=== PATIENT | female | born 2000 ===

== ENCOUNTER 2024-05-01 07:07 | Emergency (ER) | payer OTHER, SELFPAY ==
--- NOTE | ~2024-05-01 | XR_ITS ---
EXAMINATION: XR CHEST CLINICAL INFORMATION: Chest pain after vomiting COMPARISON: None available. TECHNIQUE: Frontal view of the chest was obtained. FINDINGS: No focal consolidation. No pneumothorax. Trachea is midline. Cardiomediastinal silhouette is not enlarged. No large pleural effusion. Osseous structures are intact. Soft tissues are unremarkable. XR/XR chest 1V IMPRESSION: No acute cardiopulmonary process. Electronically signed by: Robert Pruett MD 05/01/2024 08:54 AM EDT
--- NOTE | ~2024-05-01 | US_ITS ---
EXAMINATION: US PELVIC COMPLETE WITH TV CLINICAL INFORMATION: Left-sided Pelvic pain COMPARISON: None available. TECHNIQUE: Real-time transabdominal and transvaginal ultrasound scanning. FINDINGS: Transabdominal and transvaginal ultrasound examination of the pelvis were performed. Uterus: Anteverted; measuring 7.5 cm in length, 4.1 cm in AP diameter and 5.7 cm in width. Uterine cervix measures 2.5 cm in length. Echotexture: normal sonographic appearance. A thick walled hypoechoic lesion with significant internal echoes is seen in left lateral uterine body measuring 3.2 cm in AP diameter, 3.8 cm in width, 3.6 cm in vertical height. Endometrial Thickness: 0.48 cm. Right ovary: 5.0 x 2.7 x 2.2 cm (SAG x AP x TRV), calculated volume of 16.1 mL, with normal echotexture. Color Doppler imaging and Doppler spectral analysis show normal directional arterial and venous Doppler flow spectrum. Anechoic simple cyst measures 3.0 x 2.1 x 2.2 cm (SAG x AP x TRV). Left ovary: 3.5 x 2.1 x 2.2 cm (SAG x AP x TRV), calculated volume of 8.3 mL, with normal echotexture. Color Doppler imaging and Doppler spectral analysis show normal directional arterial and venous Doppler flow spectrum. Small collection of posterior pelvic cul-de-sac free fluid is present. Limited view of the urinary bladder shows no abnormality. US/US pelvic ovarian doppler IMPRESSION: 1. A thick-walled hemorrhagic cystic lesion is seen in left lateral uterine body, could represent a hemorrhagic leiomyoma. Follow-up with pre and postcontrast MRI of pelvis is recommended. 2. A 3.0 cm simple cyst is seen in the right ovary. 3. Findings are overwhelmingly likely to represent a normal ovarian follicle. No followup imaging recommended. 4. Small collection of posterior pelvic cul-de-sac free fluid is present. Electronically signed by: Socorro Disla MD 05/01/2024 10:35 AM EDT
--- NOTE | ~2024-05-01 | US_ITS ---
EXAMINATION: US PELVIC COMPLETE WITH TV CLINICAL INFORMATION: Left-sided Pelvic pain COMPARISON: None available. TECHNIQUE: Real-time transabdominal and transvaginal ultrasound scanning. FINDINGS: Transabdominal and transvaginal ultrasound examination of the pelvis were performed. Uterus: Anteverted; measuring 7.5 cm in length, 4.1 cm in AP diameter and 5.7 cm in width. Uterine cervix measures 2.5 cm in length. Echotexture: normal sonographic appearance. A thick walled hypoechoic lesion with significant internal echoes is seen in left lateral uterine body measuring 3.2 cm in AP diameter, 3.8 cm in width, 3.6 cm in vertical height. Endometrial Thickness: 0.48 cm. Right ovary: 5.0 x 2.7 x 2.2 cm (SAG x AP x TRV), calculated volume of 16.1 mL, with normal echotexture. Color Doppler imaging and Doppler spectral analysis show normal directional arterial and venous Doppler flow spectrum. Anechoic simple cyst measures 3.0 x 2.1 x 2.2 cm (SAG x AP x TRV). Left ovary: 3.5 x 2.1 x 2.2 cm (SAG x AP x TRV), calculated volume of 8.3 mL, with normal echotexture. Color Doppler imaging and Doppler spectral analysis show normal directional arterial and venous Doppler flow spectrum. Small collection of posterior pelvic cul-de-sac free fluid is present. Limited view of the urinary bladder shows no abnormality. US/US pelvic and transvaginal IMPRESSION: 1. A thick-walled hemorrhagic cystic lesion is seen in left lateral uterine body, could represent a hemorrhagic leiomyoma. Follow-up with pre and postcontrast MRI of pelvis is recommended. 2. A 3.0 cm simple cyst is seen in the right ovary. 3. Findings are overwhelmingly likely to represent a normal ovarian follicle. No followup imaging recommended. 4. Small collection of posterior pelvic cul-de-sac free fluid is present. Electronically signed by: Socorro Disla MD 05/01/2024 10:35 AM EDT
[2024-05-01 07:09] VITALS: BP 129/87; PULSE 71; RESP 20; TEMP 37.1; O2SAT 99; BMI 37.3
[2024-05-01] MEDS: ondansetron HCL 4 MG/2 ML VIAL IVPUSH (07:34)
--- NOTE | 2024-05-01 07:34 | ED.ABDPAIN ---
HPI - Abdominal Pain General Chief Complaint: Abdominal Pain Stated Complaint: Abd pain Time Seen by Provider: 05/01/24 07:13 Source: patient Mode of arrival: ambulatory Limitations: no limitations History of Present Illness ED Provider: DEVAUGHN NAVA narrative: 23 yo female with PMH of endometriosis and fibroids on OCPs states she was diagnosed by MRI via [facility] does not have OBGYN here notes she has severe pain around the time of her menses. She presents today with severe onset of lower abdominal pain , vomiting, cramping and n/v starting around 5am. She usually notes she takes naproxen but doesn't have any. No fevers. She tried tylenol without relief this AM. She has TENS type unit she also uses. She was vomiting so much her chest started to hurt. She has had this before. She denies every having confirmatory laparascopy or any other investigations other than MRI MD elicited complaint: abdominal pain Pertinent past history: other (endometriosis) Onset (ago): hour(s) (couple) Pain Consistency: colicky Location: LLQ Severity: severe Quality: stabbing Radiation: suprapubic Migration to: no migration Exacerbating factors: movement Relieving factors: nothing Context: history of similar episodes Associated symptoms: nausea and vomiting Treatments prior to arrival: other (tylenol) Related Data Previous Rx's ?Medication ?Instructions ?Recorded cyclobenzaprine 10 mg tablet 10 mg PO TID PRN muscle spasm #20 05/01/24 tabs ibuprofen 600 mg tablet 600 mg PO Q6H PRN pain #30 tabs 05/01/24 ondansetron 4 mg disintegrating 4 mg PO Q8H PRN nausea and 05/01/24 tablet vomiting #20 tabs Allergies Allergy/AdvReac Type Severity Reaction Status Date / Time No Known Allergies Allergy Verified 05/01/24 07:12 Review of Systems Review of Systems Constitutional : No Weight loss, No Fever, No Chills ENT/Mouth : No sore throat, No Rhinorrhea Eyes: No Swelling, No Redness Cardiovascular : pos Chest Pain, No SOB, NoEdema Respiratory : No Cough, No Sputum, No Wheezing Gastrointestinal : Positive Nausea, Positive Vomiting, no Diarrhea, positive abdominal Pain, No Hematochezia, No Melena Genitourinary : No Dysuria, No Urinary Frequency, No Hematuria, No Urgency Musculoskeletal : No joint pain, No Myalgias, No Joint Swelling Skin : No Skin Lesions, No rash Neuro : No Weakness, No Numbness, No Dizziness, No Headache All other systems reviewed and are negative. [facility] Past Medical History Attestation statement: The following information was validated with the patient. Source: old records reviewed Medical History Endometriosis Uterine fibroid Social History Social History (Updated 05/01/24 @ 07:57 by Ashley Trimble DO) Patient Tobacco Use Status: Never used Tobacco Use of substances other than those prescribed or required for medical reasons: No Advance Directives: No Advance Directives Information Provided: Yes Do you have a plan to hurt others: No Plan Patient : No Physical Exam ED Vital Signs: Vital Signs - 24 hr 05/01/24 07:09 Temperature 98.7 F Pulse Rate 71 Respiratory Rate 20 Blood Pressure 129/87 Pulse Oximetry 99 Oxygen Delivery Method Room Air BMI result Body Mass Index 37.3 Appearance: Alert. Oriented X3. Moderate acute distress - appears in pain, vomiting, uncomfortable. Eyes: Pupils equal, round and reactive to light. ENT: Pharynx normal. Neck: Normal inspection. Neck supple. CVS: Normal heart rate and rhythm. Pulses normal. Respiratory: No respiratory distress. Breath sounds normal. Abdomen: Soft and moderate LLQ pain with rebound and voluntary guarding Skin: Skin warm and dry. Normal skin color. Extremities: No lower extremity edema. Neuro: Oriented X 3. No motor deficit. No sensory deficit. Medical Decision Making Medical Decision Making [facility] Narrative: 23 yo female with PMH of endometriosis, uterine fibroids here with c/o LLQ pain severe and nausea vomiting causing chest pain at this time will need basic labs, US to evaluate for cyst/torsion, IV morphine for pain. Denies hx of renal colic Differential Diagnosis Differential Diagnoses: The differential diagnosis associated with the presentation includes endometriosis, ovarian cyst, torsion Admission/Observation Consideration of admission/observation: Escalation of care including admission/observation considered pain resolved feels so much better Consult Healthcare Provider Management of the patient was discussed with: Bookkeepers Supervisor (outpatient management and follow up no other acute needs - [facility] via text) Lab Data [facility] Lab Attestation statement: I reviewed the patient's lab results. 05/01/24 07:28 05/01/24 07:28 Labs: Lab Results 05/01/24 05/01/24 Range/Units 07:28 10:15 WBC 6.0 (4.8-10.8) X10*3/uL RBC 3.98 L (4.20-5.50) X10*6/uL Hgb 12.3 (12.0-16.0) g/dl Hct 36.7 L (37.0-47.0) % MCV 92.2 (80.0-98.0) fL MCH 30.9 (27.0-33.0) pg MCHC 33.5 (31.0-35.0) g/dl RDW 12.5 (11.0-16.0) % Plt Count 316 (160-400) X10*3/uL MPV 8.7 L (9.4-12.3) fL Immature Gran % (Auto) 0.2 (0.0-0.4) % Neut % (Auto) 55.5 (45-73) % Lymph % (Auto) 31.8 (20-40) % [place] % (Auto) 10.0 (2-11) % Eos % (Auto) 1.5 (0-4) % Baso % (Auto) 1.0 (0-2) % Lymph # (Auto) 1.9 (1.2-4.9) X10*3/uL [place] # (Auto) 0.6 (0.1-1.2) X10*3/uL Eos # (Auto) 0.1 (0.0-0.4) X10*3/uL Baso # (Auto) 0.1 (0.0-0.2) X10*3/uL Abs Immat Gran (auto) 0.01 (0.00-0.03) X10*3/uL Absolute Neuts (auto) 3.4 (2.0-8.3) x10*3/uL Absolute Nucleated RBC 0.000 (0.0-0.012) X10*3/uL Nucleated RBC % (auto) 0.0 (0.0-0.2) /100WBC Sodium 139 (135-145) mmol/L Potassium 3.7 (3.3-5.1) mmol/L Chloride 106 (96-108) mmol/L Carbon Dioxide 24 (22-29) mmol/L Anion Gap 13 (12-20) BUN 13 (9-16) mg/dL Creatinine 0.94 (0.5-1.4) mg/dL Estim Creat Clear Calc 105.3 Estimated GFR > 60 Random Glucose 105 (60-115) mg/dL Calcium 9.5 (8.4-10.2) mg/dL Magnesium 1.8 (1.6-2.6) mg/dL Total Bilirubin 0.2 (0.0-1.0) mg/dL Direct Bilirubin < 0.2 (0.0-0.5) mg/dL AST 14 (5-31) U/L ALT 13 (0-31) U/L Alkaline Phosphatase 49 (39-117) U/L Total Protein 6.8 (6.5-8.0) g/dL Albumin 3.9 (3.5-5.0) g/dL Lipase 23 (8-78) U/L Beta HCG, Quant < 2 mIU/mL Urine Color Yellow Urine Appearance Clear Urine pH 7.5 (5.0-9.0) Ur Specific [place] 1.015 (1.005-1.025) Urine Protein Negative (Neg-Trace) mg/dL Urine Glucose (UA) Negative (Negative) mg/dL Urine Ketones Negative (Negative) mg/dL Urine Blood Negative (Negative) Urine Nitrite Negative (Negative) Ur Leukocyte Esterase Negative (Negative) Independent Interpretation I performed an independent interpretation of an: Plain X-Ray (chest normal) and Ultrasound (no torsion) Radiology Impression Discussion of test interpretation with radiology: I have reviewed the radiologist's reading. Independent Historian Clinical information obtained from an independent historian. History obtained from or confirmed by: Spouse Prescription Management I considered prescription management with: Pain Medication and Other Medications Administered Discontinued Medications Generic Name Dose Route Start Last Admin Trade Name Freq PRN Reason Stop Dose Admin Lactated Ringer's 1,000 mls @ 999 mls/hr 05/01/24 07:22 05/01/24 07:41 Lr IV 05/01/24 08:22 999 mls/hr .Q1H1M ONE Administration Ketorolac Tromethamine 15 mg 05/01/24 07:22 05/01/24 07:36 Ketorolac Tromethamine 15 Mg/Ml Vial IVPUSH 05/01/24 07:23 15 mg ONCE ONE Administration Lorazepam 1 mg 05/01/24 07:22 05/01/24 07:38 Lorazepam 2 Mg/Ml Vial IVPUSH 05/01/24 07:23 1 mg STAT STA Administration Morphine Sulfate 4 mg 05/01/24 07:41 05/01/24 07:50 Morphine Sulfate 4 Mg/Ml Cartridge IVPUSH 05/01/24 07:42 Not Given ONCE ONE Protocol Ondansetron HCl 4 mg 05/01/24 07:22 05/01/24 07:34 Ondansetron Hcl 4 Mg/2 Ml Vial IVPUSH 05/01/24 07:23 4 mg ONCE ONE Administration Discharge Plan Discharge Clinical Impression: Pelvic pain Fibroid, uterine Qualifiers: Uterine leiomyoma location: unspecified location Qualified Code(s): D25.9 - Leiomyoma of uterus, unspecified Patient Disposition: Home, Self-Care Instructions: Pelvic Pain (ED) Additional Instructions: return for any worsening pain, fevers, vomiting, unable to eat or drink follow up with the OBGYN listed below for outpatient MRI and monitoring rest and stay hydrated Prescriptions: New cyclobenzaprine 10 mg tablet 10 mg PO TID PRN (Reason: muscle spasm) Qty: 20 0RF ibuprofen 600 mg tablet 600 mg PO Q6H PRN (Reason: pain) Qty: 30 0RF ondansetron 4 mg tablet,disintegrating 4 mg PO Q8H PRN (Reason: nausea and vomiting) Qty: 20 0RF [place] [facility] [place] [facility] [place] Stand Alone Forms: Work/School Release Print Language: Guatemalan
[2024-05-01] MEDS: Ketorolac Tromethamine 15 MG/ML VIAL IVPUSH (07:36)
[2024-05-01] MEDS: LORazepam 2 MG/ML VIAL 1 MG IVPUSH (07:38)
[2024-05-01] MEDS: Lactated Ringers 1,000 ML 999 ML IV (07:41)
[2024-05-01 07:47] LABS: MANUAL DIFF FLAG NO
[2024-05-01 07:50] LABS: Basophils Absolute Auto 0.1 X10*3/uL (0.0-0.2); Eosinophils Absolute Auto 0.1 X10*3/uL (0.0-0.4); Eosinophils Percent Auto 1.5 % (0-4); Hematocrit 36.7 % (37.0-47.0); Hemoglobin 12.3 g/dl (12.0-16.0); Imm Gran Abs Auto 0.01 X10*3/uL (0.00-0.03); Imm Gran Pct Auto 0.2 % (0.0-0.4); Lymphocytes Absolute Auto 1.9 X10*3/uL (1.2-4.9); Lymphocytes Percent Auto 31.8 % (20-40); Mean Corpuscular HGB Conc 33.5 g/dl (31.0-35.0); Mean Corpuscular Hemoglobin 30.9 pg (27.0-33.0); Mean Corpuscular Volume 92.2 fL (80.0-98.0); Mean Platelet Volume 8.7 fL (9.4-12.3); Monocytes Absolute Auto 0.6 X10*3/uL (0.1-1.2); Neutrophils Absolute Auto 3.4 x10*3/uL (2.0-8.3); Neutrophils Percent Auto 55.5 % (45-73); Platelet Count 316 X10*3/uL (160-400); Red Blood Count 3.98 X10*6/uL (4.20-5.50); Red Cell Distribution Width 12.5 % (11.0-16.0)
[2024-05-01 08:10] LABS: Alanine Aminotransferase 13 U/L (0-31); Albumin Level 3.9 g/dL (3.5-5.0); Alkaline Phosphatase 49 U/L (39-117); Anion Gap 13 (12-20); Aspartate Amino Transferase 14 U/L (5-31); Bilirubin Direct < 0.2 mg/dL (0.0-0.5); Bilirubin Total 0.2 mg/dL (0.0-1.0); Blood Urea Nitrogen 13 mg/dL (9-16); Calcium 9.5 mg/dL (8.4-10.2); Carbon Dioxide 24 mmol/L (22-29); Chloride 106 mmol/L (96-108); Creatinine Clr Calc Pharmacy 105.3; Estimated Glomerular Filt Rate > 60; Glucose Random 105 mg/dL (60-115); Lipase 23 U/L (8-78); Magnesium 1.8 mg/dL (1.6-2.6); Potassium 3.7 mmol/L (3.3-5.1); Sodium 139 mmol/L (135-145); Total Protein 6.8 g/dL (6.5-8.0)
[2024-05-01 08:11] LABS: HCG Quantitative < 2 mIU/mL
[2024-05-01 10:28] LABS: Appearance Urine Clear; Color Urine Yellow; Glucose Urine UA Negative (Negative); Leukocyte Esterase Urine Negative (Negative); Nitrite Urine Negative (Negative); PH 7.5 (5.0-9.0); Specific Gravity - Urine 1.015 (1.005-1.025); Urine Blood Negative (Negative); Urine Ketones Negative (Negative); Urine Protein Negative (Neg-Trace)
[2024-05-01 11:50] VITALS: BP 129/87; PULSE 71; RESP 20; TEMP 37.1; O2SAT 99
== END 2024-05-01 11:51 | disposition home or self-care (01) ==
PROVIDERS: Emergency Provider Emergency Medicine
DX: D25.9 Leiomyoma of uterus, unspecified (principal); N83.291 Other ovarian cyst, right side; R10.2 Pelvic and perineal pain; R07.89 Other chest pain; Z79.899 Other long term (current) drug therapy
CPT/HCPCS: 36415; 71045; 76830; 76856; 80048; 80076; 81003; 83690; 83735; 84702; 85025; 93975; 96374; 96375; 99284; 99285; J1885; J2060; J2405; J7120

== ENCOUNTER 2024-05-03 13:12 | Emergency (ER) | payer OTHER, SELFPAY ==
--- NOTE | 2024-05-03 13:15 | ECG_ITS ---
Test Reason : chest pain Blood Pressure : / mmHG Vent. Rate : 068 BPM Atrial Rate : 068 BPM P-R Int : 146 ms QRS Dur : 084 ms QT Int : 386 ms P-R-T Axes : 053 057 060 degrees QTc Int : 410 ms Normal sinus rhythm Nonspecific T wave abnormality Abnormal ECG No previous ECGs available Referred By: Generic ED Physician Electronically Signed By:HAMZAH MUSTAFA
--- NOTE | 2024-05-03 13:22 | ED_ITS ---
HPI - Chest Pain General Chief Complaint: Chest Pain Stated Complaint: chest pain History of Present Illness HPI narrative: LWCT Related Data Previous Rx's ?Medication ?Instructions ?Recorded cyclobenzaprine 10 mg tablet 10 mg PO TID PRN muscle spasm #20 05/01/24 tabs ibuprofen 600 mg tablet 600 mg PO Q6H PRN pain #30 tabs 05/01/24 ondansetron 4 mg disintegrating 4 mg PO Q8H PRN nausea and 05/01/24 tablet vomiting #20 tabs Allergies Allergy/AdvReac Type Severity Reaction Status Date / Time No Known Allergies Allergy Verified 05/03/24 13:27 ON LICENSE OF [facility] Past Medical History Medical History Endometriosis Uterine fibroid Social History Social History (Updated 05/01/24 @ 07:57 by Ashley Trimble DO) Patient Tobacco Use Status: Never used Tobacco Advance Directives: No Advance Directives Information Provided: No Do you have a plan to hurt others: No Plan Physical Exam 2 Vital Signs: Vital Signs: Last Vital Signs Temp 98.2 F 05/03/24 13:25 Pulse 71 05/03/24 13:25 Resp 22 H 05/03/24 13:25 BP 125/79 05/03/24 13:25 Pulse Ox 100 05/03/24 13:25 O2 Del Method Room Air 05/03/24 13:25 BMI result Body Mass Index 25.8 Course Course Course Narrative: Patient is a 23 year old female who presents to the emergency department for evaluation having diffuse anterior CP worsening with deep breathing, comes in waves , severe. Feels weak. Progressively worsening since her ED visit 2 days ago, states not sure what was causing it. Continues having nausea, pelvic pain, states due to endometriosis and fibroids. Takes OCP. Sometimes gets some relief with tylenol and ibuprofen. Appears to have sudden severe increase in pain, yelling and crying, reporting severe pelvic pain at this time. Plan: Serum labs, EKG Medical Decision Making Lab Data 05/03/24 14:07 05/03/24 14:07 Labs: Lab Results 05/03/24 Range/Units 14: WBC 6.5 (4.8-10.8) X10*3/uL RBC 4.12 L (4.20-5.50) X10*6/uL Hgb 12.9 (12.0-16.0) g/dl Hct 38.2 (37.0-47.0) % MCV 92.7 (80.0-98.0) fL MCH 31.3 (27.0-33.0) pg MCHC 33.8 (31.0-35.0) g/dl RDW 12.5 (11.0-16.0) % Plt Count 328 (160-400) X10*3/uL MPV 8.4 L (9.4-12.3) fL Immature Gran % (Auto) 0.3 (0.0-0.4) % Neut % (Auto) 68.2 (45-73) % Lymph % (Auto) 22.7 (20-40) % [place] % (Auto) 7.6 (2-11) % Eos % (Auto) 0.6 (0-4) % Baso % (Auto) 0.6 (0-2) % Lymph # (Auto) 1.5 (1.2-4.9) X10*3/uL [place] # (Auto) 0.5 (0.1-1.2) X10*3/uL Eos # (Auto) 0.0 (0.0-0.4) X10*3/uL Baso # (Auto) 0.0 (0.0-0.2) X10*3/uL Abs Immat Gran (auto) 0.02 (0.00-0.03) X10*3/uL Absolute Neuts (auto) 4.4 (2.0-8.3) x10*3/uL Absolute Nucleated RBC 0.000 (0.0-0.012) X10*3/uL Nucleated RBC % (auto) 0.0 (0.0-0.2) /100WBC PT 11.5 (11.1-13.3) SEC INR 0.9 (0.9-1.1) Sodium 138 (135-145) mmol/L Potassium 3.9 (3.3-5.1) mmol/L Chloride 106 (96-108) mmol/L Carbon Dioxide 23 (22-29) mmol/L Anion Gap 13 (12-20) BUN 11 (9-16) mg/dL Creatinine 0.93 (0.5-1.4) mg/dL Estim Creat Clear Calc 89.4 Estimated GFR > 60 Random Glucose 104 (60-115) mg/dL Calcium 9.8 (8.4-10.2) mg/dL Magnesium 2.0 (1.6-2.6) mg/dL Total Bilirubin 0.3 (0.0-1.0) mg/dL AST 14 (5-31) U/L ALT 13 (0-31) U/L Alkaline Phosphatase 57 (39-117) U/L Troponin I High Sens < 2.7 (<3.5-17.0) ng/L Total Protein 7.5 (6.5-8.0) g/dL Albumin 4.2 (3.5-5.0) g/dL Lipase 19 (8-78) U/L Beta HCG, Quant < 2 mIU/mL Discharge Plan Discharge Clinical Impression: Chest pain Patient Disposition: Left W/O Completing Treatment Prescriptions: No Action cyclobenzaprine 10 mg tablet 10 mg PO TID PRN (Reason: muscle spasm) Qty: 20 0RF ibuprofen 600 mg tablet 600 mg PO Q6H PRN (Reason: pain) Qty: 30 0RF ondansetron 4 mg tablet,disintegrating 4 mg PO Q8H PRN (Reason: nausea and vomiting) Qty: 20 0RF Discharge Date/Time: 05/03/24 17:32
[2024-05-03 13:25] VITALS: BP 125/79; PULSE 71; RESP 22; TEMP 36.8; O2SAT 100; BMI 25.8
[2024-05-03 14:10] LABS: MANUAL DIFF FLAG NO
[2024-05-03 14:17] LABS: Basophils Percent Auto 0.6 % (0-2); Eosinophils Percent Auto 0.6 % (0-4); Hematocrit 38.2 % (37.0-47.0); Hemoglobin 12.9 g/dl (12.0-16.0); Imm Gran Abs Auto 0.02 X10*3/uL (0.00-0.03); Imm Gran Pct Auto 0.3 % (0.0-0.4); Lymphocytes Absolute Auto 1.5 X10*3/uL (1.2-4.9); Lymphocytes Percent Auto 22.7 % (20-40); Mean Corpuscular HGB Conc 33.8 g/dl (31.0-35.0); Mean Corpuscular Hemoglobin 31.3 pg (27.0-33.0); Mean Corpuscular Volume 92.7 fL (80.0-98.0); Mean Platelet Volume 8.4 fL (9.4-12.3); Monocytes Absolute Auto 0.5 X10*3/uL (0.1-1.2); Monocytes Percent Auto 7.6 % (2-11); Neutrophils Absolute Auto 4.4 x10*3/uL (2.0-8.3); Neutrophils Percent Auto 68.2 % (45-73); Platelet Count 328 X10*3/uL (160-400); Red Blood Count 4.12 X10*6/uL (4.20-5.50); Red Cell Distribution Width 12.5 % (11.0-16.0); White Blood Count 6.5 X10*3/uL (4.8-10.8)
[2024-05-03 14:28] LABS: Alanine Aminotransferase 13 U/L (0-31); Albumin Level 4.2 g/dL (3.5-5.0); Alkaline Phosphatase 57 U/L (39-117); Anion Gap 13 (12-20); Aspartate Amino Transferase 14 U/L (5-31); Bilirubin Total 0.3 mg/dL (0.0-1.0); Blood Urea Nitrogen 11 mg/dL (9-16); Calcium 9.8 mg/dL (8.4-10.2); Carbon Dioxide 23 mmol/L (22-29); Chloride 106 mmol/L (96-108); Creatinine Clr Calc Pharmacy 89.4; Estimated Glomerular Filt Rate > 60; Glucose Random 104 mg/dL (60-115); Lipase 19 U/L (8-78); Potassium 3.9 mmol/L (3.3-5.1); Sodium 138 mmol/L (135-145); Total Protein 7.5 g/dL (6.5-8.0)
[2024-05-03 14:36] LABS: INTERNATIONAL NORM RATIO 0.9 (0.9-1.1); Prothrombin Time 11.5 SEC (11.1-13.3)
[2024-05-03 14:42] LABS: Troponin-I High Sensitivity < 2.7 ng/L (<3.5-17.0)
[2024-05-03 17:33] LABS: HCG Quantitative < 2 mIU/mL
== END 2024-05-03 17:32 | disposition left against medical advice (07) ==
PROVIDERS: Nurse Practitioner Family; Physician Assistant Medical; Emergency Provider Emergency Medicine
DX: R07.9 Chest pain, unspecified (principal); Z53.21 Procedure and treatment not carried out due to patient leaving prior to being seen by health care provider
CPT/HCPCS: 36415; 80053; 83690; 83735; 84484; 84702; 85025; 85610; 93005; 99281; 99283